=== PATIENT | female | born 1950 | race Caucasian/White ===

== ENCOUNTER 2024-02-20 11:17 | Outpatient (CLI) | payer MEDICARE | END 2024-02-20 11:18 | disposition home or self-care (01) | LOC: CSHRAD 11:17 | PROVIDERS: ATTEND Psychiatry & Neurology Neurology | DX: M25.572 Pain in left ankle and joints of left foot (principal) ==

== ENCOUNTER 2024-09-22 11:57 | Outpatient (CLI) | payer OTHER | END 2024-09-22 11:58 | disposition home or self-care (01) | LOC: CSHRAD 11:57 | PROVIDERS: ATTEND Psychiatry & Neurology Neurology | DX: M48.02 Spinal stenosis, cervical region (principal); M47.812 Spondylosis without myelopathy or radiculopathy, cervical region | CPT/HCPCS: 72040 ==